=== PATIENT | male | born 1980 | race Caucasian/White ===

== ENCOUNTER 2017-02-26 04:10 | Inpatient (IN) | payer OTHER ==
--- NOTE | ~2017-02-26 | OP ---
Record Of Operation [facility] [address] [place]. [address] NAME: LIEN GRIGSBY : 82 STATUS : DIS IN PAT#: [id number] AGE: 36 ADM/REG DATE : 02/26/17 MR#: [id number] REPORT SERV DATE: 03/02/17 DICTATED BY: DELVIN CARRION II DATE: 03/02/17 REPORT STATUS : Draft TRANSCRIBED BY: MODL DATE: 03/02/17 DATE OF PROCEDURE: 02/26/2017 ATTENDING CO-SURGEON: Delvin Carrion M.D. SECOND ATTENDING CO-SURGEON: Urbano Boyer D.O. PREOPERATIVE DIAGNOSIS: Severe degenerative disc disease, with non-fusion at L5-S1 with previous interbody device. POSTOPERATIVE DIANGOSIS: Severe degenerative disc disease, with non-fusion at L5-S1 with previous interbody device. PROCEDURES: 1. Anterior exposure of the lumbar spine. 2. Anterior lumbar interbody fusion with instrumentation at L5-S1. 3. Removal of existing interbody device. ANESTHESIA: General. ESTIMATED BLOOD LOSS: Less than 50 mL. Please note, I am a co-surgeon. I am dictating a portion of the note. The remaining portion is found in the note by Dr. Boyer. DETAILS: The patient was taken to the operating room, placed in supine position on the table. General anesthesia was achieved. A protective padding was placed. We then prepped and draped in a sterile fashion. An incision was made directly over L5-S1. The rectus sheath on the left side was then opened along the length of the incision and the rectus muscle was retracted laterally. I entered the preperitoneal space and bluntly dissected into the retroperitoneal space and swept the peritoneum, the ureter, and abdominal contents to the right to expose the iliac vessels. Significant inflammatory tissue was present in the prevertebral space. With careful dissection, we completely mobilized the vessels and exposed the L5-S1 and marked this with fluoroscopy. A diskectomy with removal of interbody device and instrumentation was performed. Please see Dr. Boyer' notes for details of this. Once x-ray confirmed adequate placement, we inspected the retroperitoneum. It was hemostatic. The ureter was intact. We removed the retractors and allowed the abdominal contents to return to their normal anatomic position. We closed using running PDS and interrupted Vicryl. We closed the skin with Monocryl. At the end of procedure, he was stable. SARA/ALISA Record Of [place] [address] [address] NAME: LIEN GRIGSBY : [birth year] STATUS : DIS IN PAT#: [id number] AGE: 36 ADM/REG DATE : 02/26/17 MR#: [id number] REPORT SERV DATE: 03/02/17 DICTATED BY: DELVIN CARRION II DATE: 03/02/17 REPORT STATUS : Draft TRANSCRIBED BY: ALISA DATE: 03/02/17 Delvin Carrion II, M.D. / [id number]
--- NOTE | ~2017-02-26 | OP ---
Record Of Operation [facility] [address] [place]. [address] NAME: LIEN GRIGSBY : 82 STATUS : ADM IN PAT#: [id number] AGE: 36 ADM/REG DATE : 02/26/17 MR#: [id number] REPORT SERV DATE: 02/26/17 DICTATED BY: URBANO SAMUEL DATE: 02/26/17 REPORT STATUS : Draft TRANSCRIBED BY: MODL DATE: 02/26/17 DATE OF PROCEDURE: PREOPERATIVE DIAGNOSIS: Pseudoarthrosis, L5-S1. POSTOPERATIVE DIAGNOSIS: Pseudoarthrosis, L5-S1. PROCEDURES: Anterior retroperitoneal approach per Dr. Patrick Christian is dictated as a separate report. My procedures 1. Anterior diskectomy, L5-S1. 2. Hardware removal (interbody cage), L5-S1. 3. An interbody large pyramid cage with interbody fusion allograft/autograft. 4. Anterior instrumentation through separate plate and screws using pyramid system, L5-S1. SURGEON: Urbano Samuel D.O. PIERCING MACHINE OPERATOR: Samuel Barajas. ANESTHESIA: General. ESTIMATED BLOOD LOSS: Less than 100 mL. INDICATION: The indication for surgery and risks were explained. They are listed in the last office note as well the history and physical; see that for detail. DESCRIPTION OF PROCEDURE: Antibiotic prophylaxis given. Neurophysiology monitoring leads inserted. The patient was brought to the operative suite, general anesthetic including endotracheal intubation was administered. A Goff catheter was inserted. With the patient in the supine position on a fluoroscopic [place] spine frame, an extra bolster was placed underneath the buttocks to hyperextend his spine. The abdomen and pelvis were scrubbed with Hibiclens solution, DuraPrep was painted, and sterile drapes applied. Dr. Patrick Christian then carried out an anterior retroperitoneal approach to L5-S1 which is dictated as a separate report including the closure. After exposure, an intraoperative C- arm was used to identify and documented correct level of surgery. I then entered in with loupe magnification and headlight illumination, carried out resection of the anterior longitudinal ligament and anterior diskectomy. I removed the disk along the left and right side of the cage, the cage was obviously loose, the interbody space was definitely moving, and there was a definite gross pseudoarthrosis. Carefully, with osteotomes and curettes, I was able to ultimately release the cage which would have a fibrous union and was removed completely. The remainder of the disk material was completely curetted, the wounds were irrigated. We did an intradiscal trial. I chose a medium pyramid 12 degrees lordotic and 14 degrees in height cage. The cage was filled with a combination Record Of Operation [facility] [address] [place]. [address] NAME: LIEN GRIGSBY : 82 STATUS : ADM IN PAT#: [id number] AGE: 36 ADM/REG DATE : 02/26/17 MR#: [id number] REPORT SERV DATE: 02/26/17 DICTATED BY: URBANO SAMUEL DATE: 02/26/17 REPORT STATUS : Draft TRANSCRIBED BY: MODL DATE: 02/26/17 of allograft and a small amount of autograft from the endplate, and we used an extra-small dosage of bone protein. The cage was inserted in the midline. Once it was properly positioned, a 3-hole pyramid plate was positioned over the anterior portion of the bodies of L5 and S1, temporary fixation pins were placed, we then followed it by placement of 30 mm x 6.5 mm cancellous screws affixing the plate to the bone. Intraoperative AP and lateral x- rays showed excellent position of the implants with good mosque of disk height. Finally, Dr. Christian's team closed the wound. Sterile dressings were applied. The patient was awakened, extubated, and taken to the recovery room in satisfactory condition having tolerated the procedure well. Sponge, needle, and instrument counts were correct. No intraoperative complications noted. TANMAY/ALISA Urbano Samuel D.O. / [id number] CC: Urbano Samuel D.O.
--- NOTE | ~2017-02-26 | PREOPHP ---
PreOp History and Physical [facility] [address] [place]. [address] NAME: LIEN GRIGSBY : 82 STATUS : ADM IN PAT#: [id number] AGE: 36 ADM/REG DATE : 02/26/17 MR#: [id number] REPORT SERV DATE: 02/26/17 DICTATED BY: URBANO SAMUEL DATE: 02/26/17 REPORT STATUS : Draft TRANSCRIBED BY: MODL DATE: 02/26/17 CHIEF COMPLAINT: Intractable back pain. HISTORY OF PRESENT ILLNESS: This is a 36-year-old male who has undergone a previous work- related injury and subsequent L5-S1 posterior disk decompression, diskectomy, interbody fusion, and instrumentation approximately three years ago. The patient developed a pseudoarthrosis, has gone through a long protracted recovery and waiting for final approval for an obvious pseudoarthrosis documented by CT scan. The patient's pain is in the back, radiates into the buttocks and proximal thighs. He does not have radiculopathy-type symptoms. Pain is worse with any kind of increased activities, somewhat relieved by lying down. The pain can be as much as 8-9 on a scale of 0-10. He has had no fever, chills, night sweats, etc. This is quite an obvious pseudoarthrosis, and unfortunately, there has been a protracted recovery complicated by approval for the pseudoarthrosis repair. It has finally been improved. He is now brought to Surgery for an anterior retroperitoneal approach per Dr. Christian, followed by my procedures which will include hardware removal at L5-S1 and complete anterior diskectomy and anterior interbody large cage insertion, interbody fusion, and anterior plating at L5-S1. Prior to surgery, risks, benefits, alternatives, and expectations have been explained in great detail. Consent form has been signed. PAST MEDICAL HISTORY: None (chronic pain medication usage). PAST SURGICAL HISTORY: Left L5-S1 TLIF with instrumentation. CURRENT MEDICATIONS: Listed in chart including mainly oxycodone q.6-8 hours daily. ALLERGIES: TRAMADOL AND GABAPENTIN. SOCIAL HISTORY: He is . Has not worked for several months. Does not use any tobacco and only socially uses alcohol. FAMILY HISTORY: Noncontributory. REVIEW OF SYSTEMS: Otherwise, negative. PHYSICAL EXAMINATION: GENERAL: He is alert, cooperative, well oriented. He ambulates independently. HEENT: Grossly normal. LUNGS: Clear to auscultation. HEART: Rate is regular and rhythmic. ABDOMEN: Soft with good bowel sounds. No peritoneal signs are noted. MUSCULOSKELETAL: The spine itself has previous well-healed posterior incisions. He has no paraspinous tenderness or spasm. He has limited range of motion due to pain. The pain is worse with flexion versus extension. Straight leg raising signs are negative. Femoral nerve stretch tests are negative. Motor, sensory, and reflex exam of the lower extremities is grossly intact and normal. There is no evidence of myelopathy. Yonis signs are PreOp History and Physical [address] [place]. [address] NAME: LIEN GRIGSBY : 82 STATUS : ADM IN [facility]#: [id number] AGE: 36 ADM/REG DATE : 02/26/17 MR#: [id number] REPORT SERV DATE: 02/26/17 DICTATED BY: URBANO SAMUEL DATE: 02/26/17 REPORT STATUS : Draft TRANSCRIBED BY: MODL DATE: 02/26/17 negative. FABERE signs are negative. Orthopedically, he has no pain with movement of hips, knees, or ankles. There are pulses in all four extremities. No abnormal skin lesions are found. ASSESSMENT: Pseudoarthrosis, L5-S1. RECOMMENDATION: As listed above. /ALISA Urbano Samuel D.O. / [id number] CC: Urbano Samuel D.O.
[~2017-02-26 04:10] MED LIST: EFFEX75 PO; IBU-200200 MG PO; LYRICA100 MG PO; METHOC750B PO; MULTIVIT/MIN PO; NORCO1 TA1 PO; OXYCON10 PO; OXYIR5 MG PO; ROXICODONE15 MG PO; TESTOST CYP100 MG/ML IM; V5 PO; ZANAFLEX 4 MG TA4 MG PO; ZANTAC 150 PO; ZOCOR20 PO
[2017-02-27 05:18] LABS: BUN (BLOOD UREA NITROGEN) 9 MG/DL (6-23); CALCIUM, SERUM 8.5 MG/DL (8.5-10.4); CHLORIDE, SERUM 104 MMOL/L (96-112); CREATININE 1.09 MG/DL (0.70-1.30); GFR AFRICAN AMERICAN 101 ML/MIN (>=60); GFR NON AFRICAN AMERICAN 87 ML/MIN (>=60); GLUCOSE, SERUM 111 MG/DL (60-99); POTASSIUM, SERUM 4.1 MMOL/L (3.5-5.3); SODIUM, SERUM 142 MMOL/L (135-148)
[2017-02-27 05:26] LABS: BASOPHILS 0.1 %; BASOPHILS ABSOLUTE 0.01 10/3/uL (0.0-0.16); EOSINOPHILS 0.1 %; EOSINOPHILS ABSOLUTE 0.01 10/3/uL (0.0-0.53); HEMOGLOBIN 13.6 g/dL (13.6-17.8); IMMATURE GRANULOCYTES 0.3 %; IMMATURE GRANULOCYTES ABSOLUTE 0.04 10/3/uL (0.0-0.11); LYMPHOCYTES 11.1 %; MEAN CORPUS HGB CONC 35.8 g/dL (32.0-36.0); MEAN CORPUSCULAR HEMOGLOB 31.4 pg (26.0-34.0); MEAN CORPUSCULAR VOLUME 87.8 fL (80-100); MEAN PLATELET VOLUME 9.5 fL (9.2-13.0); MONOCYTES 10.5 %; MONOCYTES ABSOLUTE 1.42 10/3/uL (0.21-1.20); NEUTROPHILS 77.9 %; PLATELET COUNT 252 10/3/uL (150-400); RBC DISTRIBUTION WIDTH 13.4 % (12.0-16.0); RED CELL COUNT 4.33 10/6/uL (4.7-6.1)
[2017-02-27 05:27] LABS: MANUAL DIFF NO %; WHITE BLOOD CELLS 13.5 10/3/uL (4.5-10.5)
[2017-02-27 05:28] LABS: CO2 (CARBON DIOXIDE) 34 MMOL/L (24-34)
[2017-02-28] MEDS ORDERED: OXYCON20 PO (11:13)
[2017-02-28] MEDS ORDERED: OXYCODONE PO (11:15)
[2017-02-28] MEDS ORDERED: METHOC750B PO (11:16)
== END 2017-02-28 12:05 | disposition home or self-care (01) | DRG 460 ==
LOC: SDC/OF 04:10 → PACU 08:51 → 3SO 13:02
PROVIDERS: Orthopaedic Surgery Orthopaedic Surgery of the Spine; Surgery
PROC: 4A11X4G Monitoring of Peripheral Nervous Electrical Activity, Intraoperative, External Approach (ICD-10-PCS; 2017-02-26)
PROC: 0SG30A0 Fusion of Lumbosacral Joint with Interbody Fusion Device, Anterior Approach, Anterior Column, Open Approach (ICD-10-PCS; principal; 2017-02-26 05:45)
PROC: 0ST40ZZ Resection of Lumbosacral Disc, Open Approach (ICD-10-PCS; 2017-02-26 05:45)
DX: M96.0 Pseudarthrosis after fusion or arthrodesis (principal); E78.5 Hyperlipidemia, unspecified
CPT/HCPCS: 36415; 80048; 82962; 85025; 86850; 86900; 86901; 87641; 88300; 88304; 88311; 93005; 97161-GP; A9270-GY; C1713; J0690; J1170; J1644; J2250; J2405; J2710; J3010